=== PATIENT | male | born 1985 | race Two or more races ===

== ENCOUNTER 2024-12-07 09:55 | Emergency (ER) | payer OTHER, SELFPAY ==
--- NOTE | 2024-12-07 | XR_ITS ---
Examination: MRI right ankle, without contrast Date and time of exam: December 07, 2024 1709 hours INDICATIONS: Injury to the ankle today with ankle pain Technique: Multiple axial sagittal and coronal images of the right ankle have been obtained with the Siemens high-resolution 1.5 [employer] MRI scanner. Images obtained include T2-weighted fat-suppressed sagittal sections, TR 3500, TE 46, T2 weighted coronal fat suppressed images, TR 3050, TE 84, T2-weighted transverse fat suppressed images, TR 3260, TE 63, proton density transverse images, TR 4720 TE 46, and T1 weighted coronal images, TR 560, TE 13. Findings: Mild convex Achilles tendon which is intact Mild plantar fasciitis Acute fractures distal fibula without significant displacement Calcaneus dome of the talus, cuboid, navicular and cuneiforms appear intact with no Lisfranc tarsometatarsal dislocations Anterior posterior inferior tibiofibular ligaments intact Complete tear of the anterior talar fibular ligament axial image 12 Diffuse edema on the lateral aspect of the foot Flexor tendons intact Diffuse tendinitis flexor tendons most prominent peroneus longus and brevis Extensor tendons intact Partial tear calcaneofibular ligament IMPRESSION: Acute fracture distal fibular shaft without significant displacement Complete tear anterior talofibular ligament Partial tear calcaneofibular ligament Diffuse flexor tendinitis
[2024-12-07 10:22] VITALS: BP 131/78; PULSE 78; RESP 18; TEMP 36.7; O2SAT 97; BMI 30.6
--- NOTE | 2024-12-07 10:39 | XR_ITS ---
Examination: Foot, right, 3 views Technique: AP, oblique, lateral views foot, 3 views Date and time of exam: December 07, 2024 1207 hours INDICATIONS: Patient fell today with injury to foot, foot pain. FINDINGS: Status post fusion first digit No acute fracture involving the foot Fractures nondisplaced distal fibular shaft IMPRESSION: Acute nondisplaced fractures distal fibular shaft
--- NOTE | 2024-12-07 10:39 | XR_ITS ---
Examination: Tibia-Fibula, right , 2 views Technique: Tibia-fibula AP lateral 2 views Date and time of exam: December 07, 2024 1207 hours INDICATIONS: Patient fell today with injury to lower leg, lower leg pain. FINDINGS: Acute fractures distal fibular shaft No significant displacement Tibia intact IMPRESSION: Acute fractures distal fibular shaft
--- NOTE | 2024-12-07 10:39 | XR_ITS ---
EXAMINATION: Ankle, right 3 views . Technique: Ankle AP, oblique, lateral 3 views Date and time of exam: December 07, 2024 1207 hours INDICATIONS: Patient fell today with injury to the ankle, ankle pain. FINDINGS: Acute fractures distal fibular shaft No significant displacement No ankle dislocation IMPRESSION: Acute fractures distal fibular shaft
--- NOTE | 2024-12-07 10:41 | EDNOTE_ITS ---
Lower Extremity Injury RME/HPI General Chief Complaint: Ankle/Foot Injury Stated Complaint: R FOOT/ANKLE INJURY Time Seen by Provider: 12/07/24 10:18 Arrival date/time: 12/07/24 09:55 This is a 39-year-old male who comes in with significant other with complaints of right ankle foot and lower leg pain. Patient states that he was in the parking lot 3 known issues and he slipped and thought he rolled his ankle. Patient is now having pain to river[place] area and right ankle. Patient denies past medical history. Related Data Previous Rx's ?Medication ?Instructions ?Recorded naproxen 500 mg tablet (Naprosyn) 500 mg PO BID PRN pa in #60 tabs 01/27/21 ibuprofen 800 mg tablet 800 mg PO Q6H PRN pain #20 t abs 12/07/24 Allergies Allergy/AdvReac Type Severity Reaction Status Date / Time No Known Allergies Allergy Verified 12/07/24 09:57 Course Orders Category Date Time Status MRI Screening NOW Care 12/07/24 14:11 Active Splint / Immobilizer STAT Care 12/07/24 18:23 Active MR ankle RT wo con Stat Exams 12/07/24 Taken XR ankle comp RT min 3V Stat Exams 12/07/24 10:39 Completed XR foot comp RT min 3V Stat Exams 12/07/24 10:39 Completed XR tibia fibula RT 2V Stat Exams 12/07/24 10:39 Completed Vital Signs Vital signs: Vital Signs Temperature 98.1 F 12/07/24 10:22 Pulse Rate 78 12/07/24 10:22 Respiratory Rate 18 12/07/24 10:22 Blood Pressure 131/78 H 12/07/24 10:22 Pulse Oximetry (%) 97 12/07/24 10:22 Oxygen Delivery Method Room Air 12/07/24 10:22 Extremity Injury, Lower MDM Narrative MDM Narrative:: tib fib x ray: FINDINGS: Acute fractures distal fibular shaft No significant displacement Tibia intact IMPRESSION: Acute fractures distal fibular shaft foot x ray: FINDINGS: Status post fusion first digit No acute fracture involving the foot Fractures nondisplaced distal fibular shaft IMPRESSION: Acute nondisplaced fractures distal fibular shaft ankle x ray: FINDINGS: Acute fractures distal fibular shaft No significant displacement No ankle dislocation IMPRESSION: Acute fractures distal fibular shaft Spoke to Dr. Alvarez, he has requested an MRI. MRI ordered for patient. posterior mallaut splint wirobert block. Patient will follow-up with Dr. Yang's office first in the morning. Call the office Discharge Plan Plan Patient Disposition: HOME (Self Care) Patient condition on transfer: Stable Prescriptions/Referrals Prescriptions/Med Rec: New ibuprofen 800 mg tablet 800 mg PO Q6H PRN (Reason: pain) Qty: 20 0RF No Action naproxen [Naprosyn] 500 mg tablet 500 mg PO BID PRN (Reason: pain) Qty: 60 0RF Referrals: Micheal Alvarez MD [Physician] - (call office first thing in the morning and bring disc) Problem List Clinical Impression: Fracture of fibula with tibia, right, closed Patient/Caregiver Discharge Instructions Discharge Activity: activity as tolerated Education Materials: ED Fracture, Lower Extremity Additional Instructions: Follow up with primary provider in 1-2 days. Come back to ED if symptoms change or worsen please follow-up as scheduled. Print Language: Cuban Stand Alone Forms: [employer] Award Info., Patient Portal Info Letter PA/MEDICATION CARE MANAGER Supervising Physician PA/MEDICATION CARE MANAGER Supervising Physician: ta
== END 2024-12-07 20:49 | disposition home or self-care (01) ==
PROVIDERS: Emergency Provider Emergency Medicine; PCP Internal Medicine
DX: S82.831A Other fracture of upper and lower end of right fibula, initial encounter for closed fracture (principal); X50.1XXA Overexertion from prolonged static or awkward postures, initial encounter; Y92.481 Parking lot as the place of occurrence of the external cause
CPT/HCPCS: 29515; 73590; 73610; 73630; 73721; 99284

== ENCOUNTER → 2025-01-07 | Outpatient (CLI) | payer OTHER, SELFPAY ==
--- NOTE | 2025-01-07 12:32 | XR_ITS ---
EXAMINATION: Ankle, right 3 views . Technique: Ankle AP, oblique, lateral 3 views Date and time of exam: December 31, 2024 1429 hours Comparison December 07, 2024 FINDINGS: Partial healing fracture distal fibular shaft, 3 mm offset at the fracture site No ankle dislocation IMPRESSION: Partial healing fracture distal fibular shaft
== END | disposition home or self-care (01) ==
LOC: CDIM 12:22
PROVIDERS: PCP Family Medicine; Referring Provider Orthopaedic Surgery; Visit Provider Orthopaedic Surgery
DX: S82.61XA Displaced fracture of lateral malleolus of right fibula, initial encounter for closed fracture (principal); X58.XXXA Exposure to other specified factors, initial encounter
CPT/HCPCS: 73610

== ENCOUNTER → 2025-01-24 | Outpatient (CLI) | payer OTHER, SELFPAY ==
--- NOTE | 2025-01-24 16:21 | XR_ITS ---
EXAMINATION: Ankle, right 3 views . Technique: Ankle AP, oblique, lateral 3 views Date and time of exam: January 24, 2025 1623 hours INDICATIONS: Acute fracture distal fibular shaft dec 07 2024. FINDINGS: Partially healing fracture distal fibular shaft are stable in satisfactory alignment IMPRESSION: Partially healing fracture distal fibular shaft with stable and satisfactory alignment
== END | disposition home or self-care (01) ==
LOC: CDIM 16:14
PROVIDERS: Referring Provider Orthopaedic Surgery; Visit Provider Orthopaedic Surgery
DX: S82.61XA Displaced fracture of lateral malleolus of right fibula, initial encounter for closed fracture (principal); X58.XXXA Exposure to other specified factors, initial encounter
CPT/HCPCS: 73610

== ENCOUNTER → 2025-02-04 | Outpatient (CLI) | payer OTHER, SELFPAY ==
--- NOTE | 2025-02-04 13:46 | XR_ITS ---
EXAMINATION: Ankle, right 3 views . Technique: Ankle AP, oblique, lateral 3 views Date and time of exam: February 04, 2025 1349 hours INDICATIONS: Right ankle fracture fibular shaft made 2024 FINDINGS: Partial healing fracture distal fibular shaft with stable and satisfactory alignment IMPRESSION: Partial healing fracture distal fibular shaft with stable and satisfactory alignment
== END | disposition home or self-care (01) ==
LOC: CDIM 13:40
PROVIDERS: Referring Provider Orthopaedic Surgery; Visit Provider Orthopaedic Surgery
DX: S82.491A Other fracture of shaft of right fibula, initial encounter for closed fracture (principal); X58.XXXA Exposure to other specified factors, initial encounter
CPT/HCPCS: 73610